=== PATIENT | male | born 1975 | race Caucasian/White ===

== ENCOUNTER 2024-07-17 17:12 | Inpatient (IN) | payer MEDICAID, OTHER, SELFPAY ==
[2024-07-17 17:45] VITALS: BP 122/88; PULSE 76; RESP 16; TEMP 36.9; O2SAT 98
--- NOTE | 2024-07-17 17:59 | PC.NURSE ---
Pt reports being allergic to a blood pressure med . T/w checked all crisis documentation and did not find the name of the med, only that the pt reported im allergic to a blood pressure med to crisis clinicians. CAW aware.
[2024-07-17] MEDS: Acetaminophen 325 MG TABLET 650 MG PO (18:44)
[2024-07-17] MEDS: hydrOXYzine HCL 25 MG TABLET PO (18:46)
[2024-07-17 19:44] VITALS: BP 153/61; PULSE 95; RESP 16; TEMP 36.4; O2SAT 98
[2024-07-17 20:29] VITALS: BMI 26.8
[2024-07-17] MEDS: traZODone HCL 50 MG TABLET PO (20:58)
--- NOTE | 2024-07-18 02:18 | PC.ADMIT ---
PT IS A 49 YEAR OLD, [place] MALE ADMITTED TO [facility] FROM [facility] ON A CONDITIONAL VOLUNTARY. A&OX4. PT IS PRIMARILY [place] SPEAKING BUT DOES SPEAK FLUENT KINYARWANDA. PT REPORTS FEELING INCREASED DEPRESSION AND ANXIETY DUE TO LIFE STRESSORS. PT FEELS OVERWHELMED BY FINANCES, WORK AND FAMILY LIFE. PT HAS 3 CHILDREN AND IS THE PRIMARY INCOME OF HIS HOUSEHOLD. PTS THOUGHT PROCESS IS LINEAR. INSIGHT IS GOOD. POOR COPING. PT REPORTS BEING A FORMER SMOKER BUT DOES NOT NEED NICOTINE REPLACEMENT. DENIES DRUG USE. PT REPORTS ALCOHOL USE A FEW TIMES PER MONTH. NO SIGNS OF ALCOHOL OR DRUG WITHDRAWAL. PT REPORTS THAT PRIOR TO GOING TO THE HOSPITAL HE TOOK SOME BLOOD PRESSURE MEDICATIONS WITH AN INTENTION TO NOT WAKE UP. PT WAS UNSURE WHAT THE NAME OF THE MEDICATION HE TOOK WAS. PT CURRENTLY DENIES ANY SUICIDAL IDEATION. PT REPORTS HAVING DIABETES (NO INSULIN USE), HYPERTENSION, AND GERD. PT REPORTS DIFFICULTY SLEEPING AND REQUESTED PRN MEDICATION FOR INSOMNIA. DENIES AH OR VH. PT APPEARS NEAT AND WELL KEMPT. NO CURRENT PSYCHIATRIC PROVIDERS OR MEDICATIONS.
[2024-07-18] MEDS: Omeprazole 20 MG CAPSULE.DR PO (06:42)
[2024-07-18 07:00] VITALS: BMI 27.0
[2024-07-18 08:00] VITALS: BP 118/71; PULSE 64; RESP 16; TEMP 36.8; O2SAT 97
[2024-07-18 08:39] LABS: Estimated Average Glucose 137 mg/dL; Hemoglobin A1C 215.4569 umol/L; Hemoglobin A1c % 6.4 % (<6.0); Total Hemoglobin (HGBA1C) 4598.2393 umol/L
[2024-07-18 08:59] LABS: Cholesterol 143 mg/dL (<200); HDL Cholesterol 38 mg/dL (>40); LDL Cholesterol Calculated 82 mg/dL (<100); Magnesium 1.9 mg/dL (1.6-2.6); Triglycerides 119 mg/dL (<150)
[2024-07-18 09:06] LABS: Free T4 (Free Thyroxine) 1.08 ng/dL (0.71-1.85); Thyroid Stimulating Hormone 1.96 uIU/mL (0.32-4.0)
--- NOTE | 2024-07-18 09:17 | HO.PSYADMNOT ---
HPI Date of Service: 08/14/24 Chief Complaint: generalized anxiety disorder,unspec depressive d/o Sources of Information: patient interviewed and chart reviewed HPI Subjective Notes: Conditional Voluntary Healthcare Proxy: No Guardianship: No Narrative: 49-year-old, [place] male he is a transfer from an ED from [place], [place] to [facility] ED yesterday for suicide ideation, anxiety and depression, in the setting of increased life stressors. Patient notes that he has been experiencing poor concentration, lack of interest/pleasure in his work and personal activities, poor sleep, hopelessness, helplessness, and anxiousness for the past 6 months. 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 He is with 3 children. He also supports his mother and other family members in [place]. His symptoms progressively worsened last week. Yesterday, he felt tired and was confused; he wanted to rest, therefore, he took 8 pain tablets (unknown name) in order to rest; he thought that he will be relieved if he were not alive. After he took the tablets, his advised him to go to the emergency room and seek help. He reports severe anxiety and depression. He reports history of feeling very depressed during the COVID pandemic for about a year and a half. He denies history of taking psychotropic medications. He denies nir or hypomania. He denies current SI. He denies HI/AH/VH. He denies alcohol illicit drug use. Patient seen at 11:30 on 07/18/2024. Past Psychiatric History: No psychiatrist hx, no history of psychotropic meds/psychiatrist/therapist No h/o SA or SIB No history of inpatient hospitalization Medical Evaluation Reviewed: Yes [facility] Family History: Mom h/o depression, maternal uncle h/o unknown mental illness with hospitalizations Social History: Employed Has 3 children Substance History: Drinks alcohol occasionally, denies illicit drug use, denies nicotine use Trauma History: None Diagnostics Vital Signs (24Hr): Vital Signs - 24 hr 07/17/24 17:45 07/17/24 19:44 07/18/24 08:00 Temperature 98.5 F 97.6 F 98.2 F Pulse Rate 76 95 64 Respiratory Rate 16 16 16 Blood Pressure 122/88 153/61 H 118/71 Pulse Oximetry 98 98 97 Oxygen Delivery Method Room Air Room Air Room Air BMI result Body Mass Index 26.8 Labs Labs: Laboratory Results - last 48 hr 07/18/24 08:20 Estimat Average Glucose 137 Hemoglobin A1c % 6.4 H Magnesium 1.9 Triglycerides 119 Cholesterol 143 LDL Cholesterol, Calc 82 HDL Cholesterol 38 L TSH 1.96 Free T4 1.08 Meds/Allergies Allergies Allergies Allergy/AdvReac Type Severity Reaction Status Date / Time No Known Allergies Allergy Verified 07/17/24 17:56 Mental Status Exam Mental Status Exam Narrative: Appearance: Casually dressed Behavior: Calm and cooperative throughout the interview. Eye contact is appropriate, and there are no signs of psychomotor agitation or retardation Speech: Normal volume and prosody Thought process logical and goal-directed Thought content: Future oriented no self-harming thoughts Mood: Depressed Affect: Blunt, mood-congruent SI:denies HI:denies VH/AH:none Delusions: None Insight/judgment: Impaired insight and judgment Memory/cog: Alert, oriented x 4. grossly intact to conversational testing Assessment & Plan Assessment & Plan (1) MDD (major depressive disorder): Status: Acute Code(s): F32.9 - Major depressive disorder, single episode, unspecified (2) REBECCA (generalized anxiety disorder): Status: Acute Code(s): F41.1 - Generalized anxiety disorder Plan 49-year-old, [place] male he is a transfer from an ED from [place], [place] to [facility] ED yesterday for suicide ideation, anxiety and depression, in the setting of increased life stressors. Patient notes that he has been experiencing poor concentration, lack of interest/pleasure in his work and personal activities, poor sleep, hopelessness, helplessness, and anxiousness for the past 6 months. 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 He is with 3 children. He also supports his mother and other family members in [place]. His symptoms progressively worsened last week. Yesterday, he felt tired and was confused; he wanted to rest, therefore, he took 8 pain tablets (unknown name) in order to rest; he thought that he will be relieved if he were not alive. After he took the tablets, his advised him to go to the emergency room and seek help. He reports severe anxiety and depression. He reports history of feeling very depressed during the COVID pandemic for about a year and a half. He denies history of taking psychotropic medications. He denies nir or hypomania. He denies current SI. He denies HI/AH/VH. He denies alcohol illicit drug use. Formulation/Clinical reasoning: MDD and REBECCA: Likely due to increased stressors such as work and financial demands and being the sole provider for his family. His symptoms progressively worsened over the past 6 months. He took some pain medication yesterday to go to sleep and never wake up, and thought that would relieve his symptoms. He denies current SI at this time. No nir or hypomania. No HI/AH/VH. No history of psychotropic medications. Will start sertraline 50 mg daily; advised to take as prescribed. Instructed on the risks, benefits, and potential adverse reactions of the medication. Continue current treatment regimen. Plan Admit to M[facility]. CV 15 minutes check. Diagnostics as needed. Collateral contact. Start sertraline 50 mg daily. Continue remainder of regime. Encouraged full milieu. Discharge planning. Patient educated on: diagnosis, medication risk/benefits and therapeutic strategies Reason for continued inpatient stay Substantial Risk for: harm to self and rapid decompensation Statement Statement: I have reviewed the history and physical and performed a pertinent examination on my patient. No changes have occurred unless specified. If the History and Physical was not performed prior to admission, the Hospitalist's service will be consulted for completing the admission physical. Time Spent With Patient Time: Total time managing care of this patient today ____ minutes.
[2024-07-18 09:18] LABS: Folate 10.5 ng/mL (> or = 4.0); Vitamin B12 503 pg/mL (200-900)
--- NOTE | 2024-07-18 10:31 | P.CONHOSP_ITS ---
History of Present Illness Data of Consult Service Date: 07/18/24 Primary Care Provider: Unknown Physician HPI Reason for consult: Medical H&P 49-year-old male with a past medical history of fatty liver disease, cho lelithiasis, GERD, hypertension and type 2 diabetes was admitted from [facility] after he ingested a large amount of unknown substance after he fell mental fatigue and lack of sleep. He is transferred here for further psychiatric treatment for depression. Per patient he takes amlodipine, omeprazole and Jardiance at home. He was unable to tolerate metformin. In the ED his QTC was 440, his EKG was normal, and his blood work was unremarkable. Today his A1c 6.4. Cholesterol within acceptable range. He denies any additional medical concerns. Review of Systems Review of Systems: Denies any shortness of breath, chest pain, dizziness, lightheadedness, abdominal pain or discomfort, nausea, vomiting or diarrhea. PMFSH Social History Household Members: Spouse and Children Housing: House Do you presently have visiting nurse or other home services: No Patient Tobacco Use Status: Former Tobacco user Smoked in Last 30 Days: No Patient Interested in Nicotine Replacement: No Patient Given Instructions on How to Stop Smoking: No Second Hand Smoke Exposure: No Currently Displaying Signs/Symptoms of Drug Intoxication Withdrawal: No Have you been hit, kicked, punched, or otherwise hurt by someone within the past year? If so, by whom?: No Do you feel safe in your current relationship?: Yes Is there a partner from a previous relationship who is making you feel unsafe now?: No Are you made to feel afraid or neglected: No Advance Directives: No Advance Directives Information Provided: Yes Do you have thoughts of harming others: None Do you have a plan to hurt others: No Plan Recently lost weight without trying: No Eating poorly because of decreased appetite: No Nutrition Risks: No Nutritional Risk Poor oral hygiene: No Meds Allergies Allergy/AdvReac Type Severity Reaction Status Date / Time No Known Allergies Allergy Verified 07/17/24 17:56 Active Medications: Current Medications Acetaminophen (Acetaminophen 325 Mg Tablet) 650 mg PO Q6H PRN PRN Reason: Headache/Pain, Scale 1-10 Last Admin: 07/17/24 18:44 Dose: 650 mg Al Hydroxide/Mg Hydroxide (Magnesium Hydrox/Alum Hydrox 30 Ml Oral.Susp) 30 ml PO Q6H PRN PRN Reason: Heartburn/Nausea Hydroxyzine HCl (Hydroxyzine Hcl 25 Mg Tablet) 25 mg PO Q6H PRN PRN Reason: mild anxiety Last Admin: 07/17/24 18:46 Dose: 25 mg Magnesium Hydroxide (Milk Of Magnesia 30 Ml Oral.Susp) 30 ml PO DAILY PRN PRN Reason: Constipation Nicotine Polacrilex (Nicotine Polacrilex 2 Mg Gum) 4 mg BUCCAL Q2H PRN PRN Reason: Nicotine Cravings Omeprazole (Omeprazole 20 Mg Capsule.Dr) 20 mg PO DAILY@0630 DASHA Last Admin: 07/18/24 06:42 Dose: 20 mg Trazodone HCl (Trazodone Hcl 50 Mg Tablet) 50 mg PO BEDTIME MRX1 PRN PRN Reason: Insomnia Last Admin: 07/17/24 20:58 Dose: 50 mg Physical Exam Vital Signs and Narrative: Vital Signs: Last Vital Signs Temp 98.2 F 07/18/24 08:00 Pulse 64 07/18/24 08:00 Resp 16 07/18/24 08:00 BP 118/71 07/18/24 08:00 Pulse Ox 97 07/18/24 08:00 O2 Del Method Room Air 07/18/24 08:00 BMI result Body Mass Index 26.8 Alert and oriented X3, able to give good history. Neuro: CN II-X11 intact, no deficits, visual acuity intact EYES: PERRLA, EOM intact ENT: Hearing intact, lips moist, nares patent no epistaxis Cardiac: S1 S2 RRR, No ectopy Pulmonary: lungs clear to auscultation, No increased WOB. Abdominal: BS active in all 4 quadrants, no guarding or tenderness MSK: Strength 5/5 upper and lower extremities : Deferred Extremities: No edema in lower extremities, PT and DP pulses palpable +2 Psych: mood stable, Quiet and cooperative. Weepy at times Skin: Warm and dry, Intact Results Labs Labs: Laboratory Results - last 24 hr 07/18/24 08:20 Estimat Average Glucose 137 Hemoglobin A1c % 6.4 H Magnesium 1.9 Triglycerides 119 Cholesterol 143 LDL Cholesterol, Calc 82 HDL Cholesterol 38 L Vitamin B12 503 Folate 10.5 TSH 1.96 Free T4 1.08 Assessment and Plan (1) Type 2 diabetes mellitus: Status: Acute Plan Depression with SI Treatment per psychiatric team Type 2 diabetes Patient reports he is only taking Jardiance, no longer takes metformin as he was unable tolerate it Recent A1c 6.4 Unable to perform med reconciliation as it has not been recorded Hypertension Continue amlodipine Blood pressure stable GERD Continue Omeprazole Thank you for allowing me to participate in the care of this patient. Signing off at this time. Please reconsult of any acute complaints or issues arise
[2024-07-18] MEDS: Sertraline HCL 50 MG TABLET PO (12:39)
[2024-07-18] MEDS: Acetaminophen 325 MG TABLET 650 MG PO (12:46)
[2024-07-18] MEDS: Lidocaine 4 % Patch ADH..PATCH 1 PATCH TRANSDERMA (16:23)
[2024-07-18] MEDS: hydrOXYzine HCL 25 MG TABLET PO ×2 (16:25→21:50)
[2024-07-18 20:00] VITALS: BP 116/73; PULSE 70; RESP 16; TEMP 37.2; O2SAT 95
[2024-07-18] MEDS: traZODone HCL 50 MG TABLET PO ×2 (20:55→21:50)
--- NOTE | 2024-07-18 21:33 | PHA.MEDREC ---
Pharmacy Consult ? Medication Reconciliation Pharmacy has reviewed the medication reconciliation completed by nursing. Called hospital in [place] to confirm medications.
[2024-07-19] MEDS: Omeprazole 20 MG CAPSULE.DR PO (06:30)
[2024-07-19 08:00] VITALS: BP 127/74; PULSE 93; RESP 16; TEMP 36.8; O2SAT 95
[2024-07-19] MEDS: Lidocaine 4 % Patch ADH..PATCH 1 PATCH TRANSDERMA (09:24)
[2024-07-19 09:25] VITALS: BP 127/74
[2024-07-19] MEDS: Cholecalciferol (Vitamin D3) 25 MCG TABLET 50 MCG PO (09:25)
[2024-07-19] MEDS: amLODIPine Besylate 5 MG TABLET PO (09:25)
[2024-07-19] MEDS: Sertraline HCL 50 MG TABLET PO (09:25)
[2024-07-19] MEDS: Empagliflozin 25 MG TABLET PO (09:25)
--- NOTE | 2024-07-19 11:47 | P.PNPSI_ITS ---
Subjective Subjective Date of Service: 07/19/24 Reason For Visit: generalized anxiety disorder,unspec depressive d/o Interim History: Reviewed precipitants to admission along with stressors. I want and need to be a good supporter of my family. Tolerating regime changes thus far. No milieu participation as yet. Encouraged to trial groups over the next few days. He agrees. Medication Compliance: Yes Side effects from medications: No Attending Groups: No Review of Systems Review of Systems Feeling tired today he reports Mental Status Exam Mental Status Exam Patient Appearance: Appropriate Patient Orientation: Person, Place, Time and Situation Level of Consciousness: Alert Patient Behavior: Talkative and Good Eye Contact Mood Description: Depressed Affect Description: Flat Patient Cognition Impaired: No Ability to Follow Directions: Good Speech Pattern: Spontaneous Speech Memory Description: Intact Hallucinations: None Delusions: Not Present Thought Process: Rumination and Goal Oriented Thought Content: positive for Perseveration Depressive Symptoms: Low Self Esteem Judgement: Fair Diagnostics Vital Signs (24Hr): Vital Signs - 24 hr 07/18/24 20:00 07/19/24 08:00 07/19/24 09:25 Temperature 98.9 F 98.2 F Pulse Rate 70 93 Respiratory Rate 16 16 Blood Pressure 116/73 127/74 127/74 Pulse Oximetry 95 95 Oxygen Delivery Method Room Air Room Air BMI result Body Mass Index 27.0 Labs Labs: Laboratory Results - last 48 hr 07/18/24 08:20 Estimat Average Glucose 137 Hemoglobin A1c % 6.4 H Magnesium 1.9 Triglycerides 119 Cholesterol 143 LDL Cholesterol, Calc 82 HDL Cholesterol 38 L Vitamin B12 503 Folate 10.5 TSH 1.96 Free T4 1.08 Medications Medications Current Medications Acetaminophen (Acetaminophen 325 Mg Tablet) 650 mg PO Q6H PRN PRN Reason: Headache/Pain, Scale 1-10 Last Admin: 07/18/24 12:46 Dose: 650 mg Al Hydroxide/Mg Hydroxide (Magnesium Hydrox/Alum Hydrox 30 Ml Oral.Susp) 30 ml PO Q6H PRN PRN Reason: Heartburn/Nausea Amlodipine Besylate (Amlodipine Besylate 5 Mg Tablet) 5 mg PO DAILY [facility] Last Admin: 07/19/24 09:25 Dose: 5 mg Empagliflozin (Empagliflozin 25 Mg Tablet) 25 mg PO DAILY DASHA Last Admin: 07/19/24 09:25 Dose: 25 mg Hydroxyzine HCl (Hydroxyzine Hcl 25 Mg Tablet) 25 mg PO Q6H PRN PRN Reason: mild anxiety Last Admin: 07/18/24 21:50 Dose: 25 mg Lidocaine (Lidocaine 4 % Patch Adh..Patch) 1 patch TRANSDERMA DAILY [facility]; Protocol Last Admin: 07/19/24 09:24 Dose: 1 patch Magnesium Hydroxide (Milk Of Magnesia 30 Ml Oral.Susp) 30 ml PO DAILY PRN PRN Reason: Constipation Nicotine Polacrilex (Nicotine Polacrilex 2 Mg Gum) 4 mg BUCCAL Q2H PRN PRN Reason: Nicotine Cravings Omeprazole (Omeprazole 20 Mg Capsule.Dr) 20 mg PO DAILY@0630 [facility] Last Admin: 07/19/24 06:30 Dose: 20 mg Sertraline HCl (Sertraline Hcl 50 Mg Tablet) 50 mg PO DAILY [facility] Last Admin: 07/19/24 09:25 Dose: 50 mg Trazodone HCl (Trazodone Hcl 50 Mg Tablet) 50 mg PO BEDTIME MRX1 PRN PRN Reason: Insomnia Last Admin: 07/18/24 21:50 Dose: 50 mg Vitamin D (Cholecalciferol (Vitamin D3) 25 Mcg Tablet) 50 mcg PO DAILY [facility] Last Admin: 07/19/24 09:25 Dose: 50 mcg Allergies Allergies Allergy/AdvReac Type Severity Reaction Status Date / Time No Known Allergies Allergy Verified 07/17/24 17:56 Assessment & Plan Assessment & Plan (1) MDD (major depressive disorder): Status: Acute Code(s): F32.9 - Major depressive disorder, single episode, unspecified (2) REBECCA (generalized anxiety disorder): Status: Acute Code(s): F41.1 - Generalized anxiety disorder Plan 49-year-old, Iranian male he is a transfer from an ED from [place], [place] to [facility] yesterday for suicide ideation, anxiety and depression, in the setting of increased life stressors. Patient notes that he has been experiencing poor concentration, lack of interest/pleasure in his work and personal activities, poor sleep, hopelessness, helplessness, and anxiousness for the past 6 months. 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 He is with 3 children. He also supports his mother and other family members in [place]. His symptoms progressively worsened last week. Yesterday, he felt tired and was confused; he wanted to rest, therefore, he took 8 pain tablets (unknown name) in order to rest; he thought that he will be relieved if he were not alive. After he took the tablets, his advised him to go to the emergency room and seek help. He reports severe anxiety and depression. He reports history of feeling very depressed during the COVID pandemic for about a year and a half. He denies history of taking psychotropic medications. He denies inr or hypomania. He denies current SI. He denies HI/AH/VH. He denies alcohol illicit drug use. Formulation/Clinical reasoning: MDD and REBECCA: Likely due to increased stressors such as work and financial demands and being the sole provider for his family. His symptoms progressively worsened over the past 6 months. He took some pain medication yesterday to go to sleep and never wake up, and thought that would relieve his symptoms. He denies current SI at this time. No nir or hypomania. No HI/AH/VH. No history of psychotropic medications. Will start sertraline 50 mg daily; advised to take as prescribed. Instructed on the risks, benefits, and potential adverse reactions of the medication. Continue current treatment regimen. Plan Admit to M[facility]. CV 15 minutes check. Diagnostics as needed. Collateral contact. Start sertraline 50 mg daily. Continue remainder of regime. Encouraged full milieu. Discharge planning. 07/19: Continue tx Reason for continued inpatient stay Substantial Risk for: rapid decompensation Time Spent With Patient Time: Total time managing care of this patient today ____ minutes.
[2024-07-19 19:55] VITALS: BP 122/69; PULSE 78; RESP 16; TEMP 37.2; O2SAT 98
[2024-07-19] MEDS: traZODone HCL 50 MG TABLET PO (20:07)
[2024-07-20] MEDS: Omeprazole 20 MG CAPSULE.DR PO (06:32)
[2024-07-20 08:00] VITALS: BP 118/74; PULSE 71; RESP 18; TEMP 36.4; O2SAT 96
[2024-07-20] MEDS: Cholecalciferol (Vitamin D3) 25 MCG TABLET 50 MCG PO (08:38)
[2024-07-20] MEDS: Sertraline HCL 50 MG TABLET PO (08:38)
[2024-07-20] MEDS: Empagliflozin 25 MG TABLET PO (08:39)
[2024-07-20] MEDS: amLODIPine Besylate 5 MG TABLET PO (08:39)
[2024-07-20] MEDS: Lidocaine 4 % Patch ADH..PATCH 1 PATCH TRANSDERMA (08:40)
--- NOTE | 2024-07-20 11:57 | P.PNPSI_ITS ---
Subjective Subjective Date of Service: 07/20/24 Reason For Visit: generalized anxiety disorder,unspec depressive d/o Interim History: Patient states he is generally feeling better no concerns regarding medication he continues on 15 minute checks feels medication useful Medication Compliance: Yes Mental Status Exam Mental Status Exam Patient Appearance: Appropriate Patient Orientation: Person, Place, Time and Situation Level of Consciousness: Alert Patient Behavior: Talkative and Good Eye Contact Mood Description: Depressed Affect Description: Flat Patient Cognition Impaired: No Ability to Follow Directions: Good Speech Pattern: Spontaneous Speech Memory Description: Intact Hallucinations: None Delusions: Not Present Thought Process: Rumination and Goal Oriented Thought Content: positive for Perseveration Depressive Symptoms: Low Self Esteem Judgement: Fair Diagnostics Vital Signs (24Hr): Vital Signs - 24 hr 07/19/24 19:55 07/20/24 08:00 Temperature 99.0 F 97.6 F Pulse Rate 78 71 Respiratory Rate 16 18 Blood Pressure 122/69 118/74 Pulse Oximetry 98 96 Oxygen Delivery Method Room Air Room Air BMI result Body Mass Index 27.0 Medications Medications Current Medications Acetaminophen (Acetaminophen 325 Mg Tablet) 650 mg PO Q6H PRN PRN Reason: Headache/Pain, Scale 1-10 Last Admin: 07/18/24 12:46 Dose: 650 mg Al Hydroxide/Mg Hydroxide (Magnesium Hydrox/Alum Hydrox 30 Ml Oral.Susp) 30 ml PO Q6H PRN PRN Reason: Heartburn/Nausea Amlodipine Besylate (Amlodipine Besylate 5 Mg Tablet) 5 mg PO DAILY [facility] Last Admin: 07/20/24 08:39 Dose: 5 mg Empagliflozin (Empagliflozin 25 Mg Tablet) 25 mg PO DAILY [facility] Last Admin: 07/20/24 08:39 Dose: 25 mg Hydroxyzine HCl (Hydroxyzine Hcl 25 Mg Tablet) 25 mg PO Q6H PRN PRN Reason: mild anxiety Last Admin: 07/18/24 21:50 Dose: 25 mg Lidocaine (Lidocaine 4 % Patch Adh..Patch) 1 patch TRANSDERMA DAILY [facility]; Protocol Last Admin: 07/20/24 08:40 Dose: 1 patch Magnesium Hydroxide (Milk Of Magnesia 30 Ml Oral.Susp) 30 ml PO DAILY PRN PRN Reason: Constipation Nicotine Polacrilex (Nicotine Polacrilex 2 Mg Gum) 4 mg BUCCAL Q2H PRN PRN Reason: Nicotine Cravings Omeprazole (Omeprazole 20 Mg Capsule.Dr) 20 mg PO DAILY@629 [facility] Last Admin: 07/20/24 06:32 Dose: 20 mg Sertraline HCl (Sertraline Hcl 50 Mg Tablet) 50 mg PO DAILY [facility] Last Admin: 07/20/24 08:38 Dose: 50 mg Trazodone HCl (Trazodone Hcl 50 Mg Tablet) 50 mg PO BEDTIME MRX1 PRN PRN Reason: Insomnia Last Admin: 07/19/24 20:07 Dose: 50 mg Vitamin D (Cholecalciferol (Vitamin D3) 25 Mcg Tablet) 50 mcg PO DAILY [facility] Last Admin: 07/20/24 08:38 Dose: 50 mcg Allergies Allergies Allergy/AdvReac Type Severity Reaction Status Date / Time No Known Allergies Allergy Verified 07/17/24 17:56 Assessment & Plan Assessment & Plan (1) MDD (major depressive disorder): Status: Acute Code(s): F32.9 - Major depressive disorder, single episode, unspecified (2) REBECCA (generalized anxiety disorder): Status: Acute Code(s): F41.1 - Generalized anxiety disorder Plan 49-year-old, [place] male he is a transfer from an ED from [place], [place] to [facility] [place] ED yesterday for suicide ideation, anxiety and depression, in the setting of increased life stressors. Patient notes that he has been experiencing poor concentration, lack of interest/pleasure in his work and personal activities, poor sleep, hopelessness, helplessness, and anxiousness for the past 6 months. 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 He is with 3 children. He also supports his mother and other family members in [place]. His symptoms progressively worsened last week. Yesterday, he felt tired and was confused; he wanted to rest, therefore, he took 8 pain tablets (unknown name) in order to rest; he thought that he will be relieved if he were not alive. After he took the tablets, his advised him to go to the emergency room and seek help. He reports severe anxiety and depression. He reports history of feeling very depressed during the COVID pandemic for about a year and a half. He denies history of taking psychotropic medications. He denies nir or hypomania. He denies current SI. He denies HI/AH/VH. He denies alcohol illicit drug use. Formulation/Clinical reasoning: MDD and REBECCA: Likely due to increased stressors such as work and financial demands and being the sole provider for his family. His symptoms progressively worsened over the past 6 months. He took some pain medication yesterday to go to sleep and never wake up, and thought that would relieve his symptoms. He denies current SI at this time. No nir or hypomania. No HI/AH/VH. No history of psychotropic medications. Will start sertraline 50 mg daily; advised to take as prescribed. Instructed on the risks, benefits, and potential adverse reactions of the medication. Continue current treatment regimen. Plan Admit to M5. CV 15 minutes check. Diagnostics as needed. Collateral contact. Start sertraline 50 mg daily. Continue remainder of regime. Encouraged full milieu. Discharge planning. 07/19: Continue tx 07/20/2024 Continue plan of care patient feeling better on current regimen no complaints of side effects Reason for continued inpatient stay Substantial Risk for: inability to function and rapid decompensation Time Spent With Patient Time: Total time managing care of this patient today ____ minutes.
[2024-07-20 20:00] VITALS: BP 129/80; PULSE 69; TEMP 36.8; O2SAT 96
[2024-07-20] MEDS: traZODone HCL 50 MG TABLET PO (20:12)
[2024-07-20] MEDS: Acetaminophen 325 MG TABLET 650 MG PO (20:16)
[2024-07-21] MEDS: Omeprazole 20 MG CAPSULE.DR PO (07:32)
[2024-07-21 08:00] VITALS: BP 117/63; PULSE 62; RESP 18; TEMP 36.5; O2SAT 96
[2024-07-21] MEDS: Cholecalciferol (Vitamin D3) 25 MCG TABLET 50 MCG PO (08:51)
[2024-07-21] MEDS: Sertraline HCL 50 MG TABLET PO (08:51)
[2024-07-21] MEDS: amLODIPine Besylate 5 MG TABLET PO (08:51)
[2024-07-21] MEDS: hydrOXYzine HCL 25 MG TABLET PO (08:53)
[2024-07-21] MEDS: Empagliflozin 25 MG TABLET PO (08:53)
[2024-07-21 20:00] VITALS: BP 121/83; PULSE 73; RESP 16; TEMP 37; O2SAT 97
[2024-07-21] MEDS: traZODone HCL 50 MG TABLET PO (21:35)
[2024-07-21] MEDS: Acetaminophen 325 MG TABLET 650 MG PO (21:35)
--- NOTE | 2024-07-21 23:21 | P.PNPSI_ITS ---
Subjective Subjective Date of Service: 07/21/24 Reason For Visit: generalized anxiety disorder,unspec depressive d/o Subjective Notes: Conditional Voluntary Interim History: Patient here for depression and anxiety. Was found resting in his bed. Says he is feeling a little better Feeling okay, mood is good Attributes admission to having a lot of stress from work and life Mood was stressed and says he had some vague SI prior to admission, but denies any since. 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 Works in [employer]. Says his son is caring for it currently. Lives at home with and 2 adult children (in their 20s) and 7. Endorsed having had some LBP but has been much better . DEnies any other issues Denies SI, HI, AVH. Per staff, isolative, sometimes in the kitchen, not attending groups. No behavioral issues. Patient not scoring on CIWA. Review of Systems Review of Systems Feeling tired today he reports Yes all other systems are reviewed and are negative Mental Status Exam Mental Status Exam Narrative: Appearance: Casually dressed Behavior: Calm and cooperative throughout the interview. Eye contact is appropriate, and there are no signs of psychomotor agitation or retardation Speech: Normal volume and prosody Thought process logical and goal-directed Thought content: Future oriented no self-harming thoughts Mood: Depressed Affect: Blunt, mood-congruent SI:denies HI:denies VH/AH:none Delusions: None Insight/judgment: Impaired insight and judgment Memory/cog: Alert, oriented x 4. grossly intact to conversational testing Patient Appearance: Appropriate Patient Orientation: Person, Place, Time and Situation Level of Consciousness: Alert Patient Behavior: Talkative and Good Eye Contact Mood Description: Depressed Affect Description: Flat Patient Cognition Impaired: No Ability to Follow Directions: Good Speech Pattern: Spontaneous Speech Memory Description: Intact Diagnostics Vital Signs (24Hr): Vital Signs - 24 hr 07/21/24 08:00 07/21/24 20:00 Temperature 97.7 F 98.6 F Pulse Rate 62 73 Respiratory Rate 18 16 Blood Pressure 117/63 121/83 Pulse Oximetry 96 97 Oxygen Delivery Method Room Air Room Air BMI result Body Mass Index 27.0 Medications Medications Current Medications Acetaminophen (Acetaminophen 325 Mg Tablet) 650 mg PO Q6H PRN PRN Reason: Headache/Pain, Scale 1-10 Last Admin: 07/20/24 20:16 Dose: 650 mg Al Hydroxide/Mg Hydroxide (Magnesium Hydrox/Alum Hydrox 30 Ml Oral.Susp) 30 ml PO Q6H PRN PRN Reason: Heartburn/Nausea Amlodipine Besylate (Amlodipine Besylate 5 Mg Tablet) 5 mg PO DAILY [facility] Last Admin: 07/21/24 08:51 Dose: 5 mg Empagliflozin (Empagliflozin 25 Mg Tablet) 25 mg PO DAILY [facility] Last Admin: 07/21/24 08:53 Dose: 25 mg Hydroxyzine HCl (Hydroxyzine Hcl 25 Mg Tablet) 25 mg PO Q6H PRN PRN Reason: mild anxiety Last Admin: 07/21/24 08:53 Dose: 25 mg Lidocaine (Lidocaine 4 % Patch Adh..Patch) 1 patch TRANSDERMA DAILY [facility]; Protocol Last Admin: 07/21/24 08:51 Dose: Not Given Magnesium Hydroxide (Milk Of Magnesia 30 Ml Oral.Susp) 30 ml PO DAILY PRN PRN Reason: Constipation Nicotine Polacrilex (Nicotine Polacrilex 2 Mg Gum) 4 mg BUCCAL Q2H PRN PRN Reason: Nicotine Cravings Omeprazole (Omeprazole 20 Mg Capsule.Dr) 20 mg PO DAILY@0630 [facility] Last Admin: 07/21/24 07:32 Dose: 20 mg Sertraline HCl (Sertraline Hcl 50 Mg Tablet) 50 mg PO DAILY [facility] Last Admin: 07/21/24 08:51 Dose: 50 mg Trazodone HCl (Trazodone Hcl 50 Mg Tablet) 50 mg PO BEDTIME MRX1 PRN PRN Reason: Insomnia Last Admin: 07/20/24 20:12 Dose: 50 mg Vitamin D (Cholecalciferol (Vitamin D3) 25 Mcg Tablet) 50 mcg PO DAILY [facility] Last Admin: 07/21/24 08:51 Dose: 50 mcg Allergies Allergies Allergy/AdvReac Type Severity Reaction Status Date / Time No Known Allergies Allergy Verified 07/17/24 17:56 Assessment & Plan Assessment & Plan (1) MDD (major depressive disorder): Status: Acute Code(s): F32.9 - Major depressive disorder, single episode, unspecified (2) REBECCA (generalized anxiety disorder): Status: Acute Code(s): F41.1 - Generalized anxiety disorder Plan 49-year-old, [place] male he is a transfer from an ED from [place], [place] to [facility] yesterday for suicide ideation, anxiety and depression, in the setting of increased life stressors. Patient notes that he has been experiencing poor concentration, lack of interest/pleasure in his work and personal activities, poor sleep, hopelessness, helplessness, and anxiousness for the past 6 months. 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 He is with 3 children. He also supports his mother and other family members in [place]. His symptoms progressively worsened last week. Yesterday, he felt tired and was confused; he wanted to rest, therefore, he took 8 pain tablets (unknown name) in order to rest; he thought that he will be relieved if he were not alive. After he took the tablets, his advised him to go to the emergency room and seek help. He reports severe anxiety and depression. He reports history of feeling very depressed during the COVID pandemic for about a year and a half. He denies history of taking psychotropic medications. He denies nir or hypomania. He denies current SI. He denies HI/AH/VH. He denies alcohol illicit drug use. Formulation/Clinical reasoning: MDD and REBECCA: Likely due to increased stressors such as work and financial demands and being the sole provider for his family. His symptoms progressively worsened over the past 6 months. He took some pain medication yesterday to go to sleep and never wake up, and thought that would relieve his symptoms. He denies current SI at this time. No nir or hypomania. No HI/AH/VH. No history of psychotropic medications. Will start sertraline 50 mg daily; advised to take as prescribed. Instructed on the risks, benefits, and potential adverse reactions of the medication. Continue current treatment regimen. Plan Admit to M5. CV 15 minutes check. Diagnostics as needed. Collateral contact. Start sertraline 50 mg daily. Continue remainder of regime. Encouraged full milieu. Discharge planning. 07/19: Continue tx 07/20/2024 Continue plan of care patient feeling better on current regimen no complaints of side effects Patient educated on: diagnosis and medication risk/benefits Informed Consent: understands Reason for continued inpatient stay Substantial Risk for: inability to function, rapid decompensation and med/psych decompensation Time Spent With Patient Time: Total time managing care of this patient today ____ minutes.
[2024-07-22] MEDS: Omeprazole 20 MG CAPSULE.DR PO (07:22)
[2024-07-22 07:47] VITALS: BP 118/72; PULSE 62; RESP 18; TEMP 36.5; O2SAT 96
[2024-07-22] MEDS: Cholecalciferol (Vitamin D3) 25 MCG TABLET 50 MCG PO (08:20)
[2024-07-22] MEDS: amLODIPine Besylate 5 MG TABLET PO (08:20)
[2024-07-22] MEDS: Empagliflozin 25 MG TABLET PO (08:21)
[2024-07-22] MEDS: Sertraline HCL 50 MG TABLET PO (08:21)
--- NOTE | 2024-07-22 09:52 | P.PNPSI_ITS ---
Subjective Subjective Date of Service: 07/22/24 Reason For Visit: generalized anxiety disorder,unspec depressive d/o Subjective Notes: Conditional Voluntary Healthcare Proxy: No Guardianship: No Medical Problems Affecting Mental Status: No Interim History: Pt reports the weekend was slow but steady. He was able to attend some milieu groups and found these useful. He reports increased interactions with peers on the unit and is engaging in more milieu related activity. Today he discussed his depressive sx. Reports anergia, less enjoyment in work and activities, was found to have low testosterone and is working with PCP team on this-states he was told it was not low enough for replacement and discussed effects on mood of DM. Reports meds are working-trazodone helping with sleep. Discussed Sertraline titration which he is in agreement with. Medication Compliance: Yes Side effects from medications: No Attending Groups: Yes Review of Systems Acute medical concerns: No Review of Systems Review of Systems Denies Mental Status Exam Mental Status Exam Patient Appearance: Appropriate Patient Orientation: Person, Place, Time and Situation Level of Consciousness: Alert Patient Behavior: Appropriate, Talkative, Cooperative and Good Eye Contact Mood Description: Depressed Affect Description: Flat Patient Cognition Impaired: No Ability to Follow Directions: Good Speech Pattern: Spontaneous Speech Memory Description: Intact Hallucinations: None Delusions: Not Present Thought Process: Intact Thought Content: positive for Intact and positive for Suicidal Ideation (denies) Depressive Symptoms: Thoughts of /Suicide (denies) Judgement: Good Diagnostics Vital Signs (24Hr): Vital Signs - 24 hr 07/21/24 20:00 07/22/24 07:47 Temperature 98.6 F 97.7 F Pulse Rate 73 62 Respiratory Rate 16 18 Blood Pressure 121/83 118/72 Pulse Oximetry 97 96 Oxygen Delivery Method Room Air Room Air BMI result Body Mass Index 27.0 Medications Medications Current Medications Acetaminophen (Acetaminophen 325 Mg Tablet) 650 mg PO Q6H PRN PRN Reason: Headache/Pain, Scale 1-10 Last Admin: 07/21/24 21:35 Dose: 650 mg Al Hydroxide/Mg Hydroxide (Magnesium Hydrox/Alum Hydrox 30 Ml Oral.Susp) 30 ml PO Q6H PRN PRN Reason: Heartburn/Nausea Amlodipine Besylate (Amlodipine Besylate 5 Mg Tablet) 5 mg PO DAILY [facility] Last Admin: 07/22/24 08:20 Dose: 5 mg Empagliflozin (Empagliflozin 25 Mg Tablet) 25 mg PO DAILY [facility] Last Admin: 07/22/24 08:21 Dose: 25 mg Hydroxyzine HCl (Hydroxyzine Hcl 25 Mg Tablet) 25 mg PO Q6H PRN PRN Reason: mild anxiety Last Admin: 07/21/24 08:53 Dose: 25 mg Lidocaine (Lidocaine 4 % Patch Adh..Patch) 1 patch TRANSDERMA DAILY [facility]; Protocol Last Admin: 07/22/24 08:22 Dose: Not Given Magnesium Hydroxide (Milk Of Magnesia 30 Ml Oral.Susp) 30 ml PO DAILY PRN PRN Reason: Constipation Nicotine Polacrilex (Nicotine Polacrilex 2 Mg Gum) 4 mg BUCCAL Q2H PRN PRN Reason: Nicotine Cravings Omeprazole (Omeprazole 20 Mg Capsule.Dr) 20 mg PO DAILY@0630 [facility] Last Admin: 07/22/24 07:22 Dose: 20 mg Sertraline HCl (Sertraline Hcl 50 Mg Tablet) 50 mg PO DAILY [facility] Last Admin: 07/22/24 08:21 Dose: 50 mg Trazodone HCl (Trazodone Hcl 50 Mg Tablet) 50 mg PO BEDTIME MRX1 PRN PRN Reason: Insomnia Last Admin: 07/21/24 21:35 Dose: 50 mg Vitamin D (Cholecalciferol (Vitamin D3) 25 Mcg Tablet) 50 mcg PO DAILY [facility] Last Admin: 07/22/24 08:20 Dose: 50 mcg Allergies Allergies Allergy/AdvReac Type Severity Reaction Status Date / Time No Known Allergies Allergy Verified 07/17/24 17:56 Assessment & Plan Assessment & Plan (1) MDD (major depressive disorder): Status: Acute Code(s): F32.9 - Major depressive disorder, single episode, unspecified (2) REBECCA (generalized anxiety disorder): Status: Acute Code(s): F41.1 - Generalized anxiety disorder Plan 49-year-old, [place] male he is a transfer from an ED [place], [place] [facility] [place] for suicide ideation, anxiety and depression, in the setting of increased life stressors. Patient notes that he has been experiencing poor concentration, lack of interest/pleasure in his work and personal activities, poor sleep, hopelessness, helplessness, and anxiousness for the past 6 months. 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 He is with 3 children. He also supports his mother and other family members in [place]. His symptoms progressively worsened last week. Yesterday, he felt tired and was confused; he wanted to rest, therefore, he took 8 pain tablets (unknown name) in order to rest; he thought that he will be relieved if he were not alive. After he took the tablets, his advised him to go to the emergency room and seek help. He reports severe anxiety and depression. He reports history of feeling very depressed during the COVID pandemic for about a year and a half. He denies history of taking psychotropic medications. He denies nir or hypomania. He d enies current SI. He denies HI/AH/VH. He denies alcohol illicit drug use. Formulation/Clinical reasoning: MDD and REBECCA: Likely due to increased stressors such as work and financial demands and being the sole provider for his family. His symptoms progressively worsened over the past 6 months. He took some pain medication yesterday to go to sleep and never wake up, and thought that would relieve his symptoms. He denies current SI at this time. No nir or hypomania. No HI/AH/VH. No history of psychotropic medications. Will start sertraline 50 mg daily; advised to take as prescribed. Instructed on the risks, benefits, and potential adverse reactions of the medication. Continue current treatment regimen. Plan Admit to M5. CV 15 minutes check. Diagnostics as needed. Collateral contact. Start sertraline 50 mg daily. Continue remainder of regime. Encouraged full milieu. Discharge planning. 07/19: Continue tx 07/20/2024 Continue plan of care patient feeling better on current regimen no complaints of side effects 07/22- Increase Sertraline to 100 mg daily Reason for continued inpatient stay Substantial Risk for: rapid decompensation Time Spent With Patient Time: Total time managing care of this patient today ____ minutes.
[2024-07-22 20:00] VITALS: BP 124/64; PULSE 70; RESP 16; TEMP 37; O2SAT 97
[2024-07-22] MEDS: Acetaminophen 325 MG TABLET 650 MG PO (21:33)
[2024-07-22] MEDS: traZODone HCL 50 MG TABLET PO (21:33)
[2024-07-23 08:00] VITALS: BP 116/64; PULSE 67; RESP 18; TEMP 36.6; O2SAT 97
[2024-07-23 08:29] VITALS: BP 116/64
[2024-07-23] MEDS: amLODIPine Besylate 5 MG TABLET PO (08:29)
[2024-07-23] MEDS: Omeprazole 20 MG CAPSULE.DR PO (08:29)
[2024-07-23] MEDS: Sertraline HCL 100 MG TABLET PO (08:29)
[2024-07-23] MEDS: Cholecalciferol (Vitamin D3) 25 MCG TABLET 50 MCG PO (08:30)
[2024-07-23] MEDS: Empagliflozin 25 MG TABLET PO (08:30)
--- NOTE | 2024-07-23 09:57 | P.PNPSI_ITS ---
Subjective Subjective Date of Service: 07/23/24 Reason For Visit: generalized anxiety disorder,unspec depressive d/o Subjective Notes: Conditional Voluntary Healthcare Proxy: No Guardianship: No Medical Problems Affecting Mental Status: No Interim History: Tolerating Sertraline increase. Reports some mild dizziness this a.m. Will monitor. Planning discharge for 07/25 to home/family. Continues to participate in milieu and engage with peers and team. Medication Compliance: Yes Side effects from medications: No Attending Groups: Yes Review of Systems Acute medical concerns: No Medical Review of Systems: unchanged Review of Systems Review of Systems Denies Mental Status Exam Mental Status Exam Patient Appearance: Appropriate Patient Orientation: Person, Place, Time and Situation Level of Consciousness: Alert Patient Behavior: Appropriate, Talkative, Cooperative and Good Eye Contact Mood Description: Depressed Affect Description: Flat Patient Cognition Impaired: No Ability to Follow Directions: Good Speech Pattern: Spontaneous Speech Memory Description: Intact Hallucinations: None Delusions: Not Present Thought Process: Intact Thought Content: positive for Intact and positive for Suicidal Ideation (denies) Depressive Symptoms: Thoughts of /Suicide (denies) Judgement: Good Diagnostics Vital Signs (24Hr): Vital Signs - 24 hr 07/22/24 20:00 07/23/24 08:00 07/23/24 08:29 Temperature 98.6 F 97.8 F Pulse Rate 70 67 Respiratory Rate 16 18 Blood Pressure 124/64 116/64 116/64 Pulse Oximetry 97 97 Oxygen Delivery Method Room Air Room Air BMI result Body Mass Index 27.0 Medications Medications Current Medications Acetaminophen (Acetaminophen 325 Mg Tablet) 650 mg PO Q6H PRN PRN Reason: Headache/Pain, Scale 1-10 Last Admin: 07/22/24 21:33 Dose: 650 mg Al Hydroxide/Mg Hydroxide (Magnesium Hydrox/Alum Hydrox 30 Ml Oral.Susp) 30 ml PO Q6H PRN PRN Reason: Heartburn/Nausea Amlodipine Besylate (Amlodipine Besylate 5 Mg Tablet) 5 mg PO DAILY [facility] Last Admin: 07/23/24 08:29 Dose: 5 mg Empagliflozin (Empagliflozin 25 Mg Tablet) 25 mg PO DAILY DASHA Last Admin: 07/23/24 08:30 Dose: 25 mg Hydroxyzine HCl (Hydroxyzine Hcl 25 Mg Tablet) 25 mg PO Q6H PRN PRN Reason: mild anxiety Last Admin: 07/21/24 08:53 Dose: 25 mg Lidocaine (Lidocaine 4 % Patch Adh..Patch) 1 patch TRANSDERMA DAILY [facility]; Protocol Last Admin: 07/23/24 08:31 Dose: Not Given Magnesium Hydroxide (Milk Of Magnesia 30 Ml Oral.Susp) 30 ml PO DAILY PRN PRN Reason: Constipation Nicotine Polacrilex (Nicotine Polacrilex 2 Mg Gum) 4 mg BUCCAL Q2H PRN PRN Reason: Nicotine Cravings Omeprazole (Omeprazole 20 Mg Capsule.Dr) 20 mg PO DAILY@0630 [facility] Last Admin: 07/23/24 08:29 Dose: 20 mg Sertraline HCl (Sertraline Hcl 100 Mg Tablet) 100 mg PO DAILY [facility] Last Admin: 07/23/24 08:29 Dose: 100 mg Trazodone HCl (Trazodone Hcl 50 Mg Tablet) 50 mg PO BEDTIME MRX1 PRN PRN Reason: Insomnia Last Admin: 07/22/24 21:33 Dose: 50 mg Vitamin D (Cholecalciferol (Vitamin D3) 25 Mcg Tablet) 50 mcg PO DAILY [facility] Last Admin: 07/23/24 08:30 Dose: 50 mcg Allergies Allergies Allergy/AdvReac Type Severity Reaction Status Date / Time No Known Allergies Allergy Verified 07/17/24 17:56 Assessment & Plan Assessment & Plan (1) MDD (major depressive disorder): Status: Acute Code(s): F32.9 - Major depressive disorder, single episode, unspecified (2) REBECCA (generalized anxiety disorder): Status: Acute Code(s): F41.1 - Generalized anxiety disorder Plan 49-year-old, [place] male he is a transfer from an ED from [place], [place] to [facility] ED yesterday for suicide ideation, anxiety and depression, in the setting of increased life stressors. Patient notes that he has been experiencing poor concentration, lack of interest/pleasure in his work and personal activities, poor sleep, hopelessness, helplessness, and anxiousness for the past 6 months. 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 He is with 3 children. He also supports his mother and other family members in [place]. His symptoms progressively worsened last week. Yesterday, he felt tired and was confused; he wanted to rest, therefore, he took 8 pain tablets (unknown name) in order to rest; he thought that he will be relieved if he were not alive. After he took the tablets, his advised him to go to the emergency room and seek help. He reports severe anxiety and depression. He reports history of feeling very depressed during the COVID pandemic for about a year and a half. He denies history of taking psychotropic medications. He denies nir or hypomania. He denies current SI. He denies HI/AH/VH. He denies alcohol illicit drug use. Formulation/Clinical reasoning: MDD and REBECCA: Likely due to increased stressors such as work and financial demands and being the sole provider for his family. His symptoms progressively worsened over the past 6 months. He took some pain medication yesterday to go to sleep and never wake up, and thought that would relieve his symptoms. He denies current SI at this time. No nir or hypomania. No HI/AH/VH. No history of psychotropic medications. Will start sertraline 50 mg daily; advised to take as prescribed. Instructed on the risks, benefits, and potential adverse reactions of the medication. Continue current treatment regimen. Plan Admit to M5. CV 15 minutes check. Diagnostics as needed. Collateral contact. Start sertraline 50 mg daily. Continue remainder of regime. Encouraged full milieu. Discharge planning. 07/19: Continue tx 07/20/2024 Continue plan of care patient feeling better on current regimen no complaints of side effects 07/23: Continue Sertraline at 100 mg daily. Probable DC on 07/25. Reason for continued inpatient stay Substantial Risk for: rapid decompensation Time Spent With Patient Time: Total time managing care of this patient today ____ minutes.
[2024-07-23 19:57] VITALS: BP 124/81; PULSE 67; RESP 18; TEMP 37.1; O2SAT 97
[2024-07-23] MEDS: traZODone HCL 50 MG TABLET PO (21:21)
[2024-07-23] MEDS: Acetaminophen 325 MG TABLET 650 MG PO (21:24)
[2024-07-24] MEDS: Omeprazole 20 MG CAPSULE.DR PO (06:11)
[2024-07-24 07:59] VITALS: BP 115/65; PULSE 63; RESP 16; TEMP 36.6; O2SAT 97
[2024-07-24] MEDS: Cholecalciferol (Vitamin D3) 25 MCG TABLET 50 MCG PO (08:20)
[2024-07-24] MEDS: Empagliflozin 25 MG TABLET PO (08:20)
[2024-07-24] MEDS: amLODIPine Besylate 5 MG TABLET PO (08:20)
[2024-07-24] MEDS: Acetaminophen 325 MG TABLET 650 MG PO ×2 (08:21→21:40)
[2024-07-24] MEDS: Sertraline HCL 100 MG TABLET PO (08:21)
--- NOTE | 2024-07-24 09:48 | P.PNPSI_ITS ---
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 asked treatment questions, medication questions and asks how family can be most supportive. Reviewed conversation with pt, review of meds, plan of care. Discussed decreasing Sertraline to 75 mg daily from 100 mg daily due to vertigo that is decreasing yet continues to be present. Pt in agreement, feels prepared to discharge on 07/25. Denies SI,HI,AH,VH. No sx of acute nir or psychosis evident. Medication Compliance: Yes Side effects from medications: Yes (decreasing vertigo, dizziness) Attending Groups: Yes Review of Systems Acute medical concerns: No Review of Systems Review of Systems dizziness is decreasing, yet still present. Will decrease Sertraline to 75 mg daily. Mental Status Exam Mental Status Exam Patient Appearance: Appropriate Patient Orientation: Person, Place, Time and Situation Level of Consciousness: Alert Patient Behavior: Appropriate, Talkative, Cooperative and Good Eye Contact Mood Description: Appropriate Affect Description: Flat Patient Cognition Impaired: No Ability to Follow Directions: Good Speech Pattern: Spontaneous Speech Memory Description: Intact Hallucinations: None Delusions: Not Present Thought Process: Intact Thought Content: positive for Intact and positive for Suicidal Ideation (denies) Depressive Symptoms: Thoughts of /Suicide (denies) Judgement: Good Diagnostics Vital Signs (24Hr): Vital Signs - 24 hr 07/23/24 19:57 07/24/24 07:59 Temperature 98.8 F 97.8 F Pulse Rate 67 63 Respiratory Rate 18 16 Blood Pressure 124/81 115/65 Pulse Oximetry 97 97 Oxygen Delivery Method Room Air Room Air BMI result Body Mass Index 27.0 Medications Medications Current Medications Acetaminophen (Acetaminophen 325 Mg Tablet) 650 mg PO Q6H PRN PRN Reason: Headache/Pain, Scale 1-10 Last Admin: 07/24/24 08:21 Dose: 650 mg Al Hydroxide/Mg Hydroxide (Magnesium Hydrox/Alum Hydrox 30 Ml Oral.Susp) 30 ml PO Q6H PRN PRN Reason: Heartburn/Nausea Amlodipine Besylate (Amlodipine Besylate 5 Mg Tablet) 5 mg PO DAILY [facility] Last Admin: 07/24/24 08:20 Dose: 5 mg Empagliflozin (Empagliflozin 25 Mg Tablet) 25 mg PO DAILY [facility] Last Admin: 07/24/24 08:20 Dose: 25 mg Hydroxyzine HCl (Hydroxyzine Hcl 25 Mg Tablet) 25 mg PO Q6H PRN PRN Reason: mild anxiety Last Admin: 07/21/24 08:53 Dose: 25 mg Lidocaine (Lidocaine 4 % Patch Adh..Patch) 1 patch TRANSDERMA DAILY [facility]; Protocol Last Admin: 07/23/24 08:31 Dose: Not Given Magnesium Hydroxide (Milk Of Magnesia 30 Ml Oral.Susp) 30 ml PO DAILY PRN PRN Reason: Constipation Nicotine Polacrilex (Nicotine Polacrilex 2 Mg Gum) 4 mg BUCCAL Q2H PRN PRN Reason: Nicotine Cravings Omeprazole (Omeprazole 20 Mg Capsule.Dr) 20 mg PO DAILY@0630 [facility] Last Admin: 07/24/24 06:11 Dose: 20 mg Sertraline HCl (Sertraline Hcl 100 Mg Tablet) 100 mg PO DAILY [facility] Last Admin: 07/24/24 08:21 Dose: 100 mg Trazodone HCl (Trazodone Hcl 50 Mg Tablet) 50 mg PO BEDTIME MRX1 PRN PRN Reason: Insomnia Last Admin: 07/23/24 21:21 Dose: 50 mg Vitamin D (Cholecalciferol (Vitamin D3) 25 Mcg Tablet) 50 mcg PO DAILY [facility] Last Admin: 07/24/24 08:20 Dose: 50 mcg Allergies Allergies Allergy/AdvReac Type Severity Reaction Status Date / Time No Known Allergies Allergy Verified 07/17/24 17:56 Assessment & Plan Assessment & Plan (1) MDD (major depressive disorder): Status: Acute Code(s): F32.9 - Major depressive disorder, single episode, unspecified (2) REBECCA (generalized anxiety disorder): Status: Acute Code(s): F41.1 - Generalized anxiety disorder Plan 49-year-old, [place] male he is a transfer from an ED from [place], [place] to [facility] yesterday for suicide ideation, anxiety and depression, in the setting of increased life stressors. Patient notes that he has been experiencing poor concentration, lack of interest/pleasure in his work and personal activities, poor sleep, hopelessness, helplessness, and anxiousness for the past 6 months. 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 He is with 3 children. He also supports his mother and other family members in [place]. His symptoms progressively worsened last week. Yesterday, he felt tired and was confused; he wanted to rest, therefore, he took 8 pain tablets (unknown name) in order to rest; he thought that he will be relieved if he were not alive. After he took the tablets, his advised him to go to the emergency room and seek help. He reports severe anxiety and depression. He reports history of feeling very depressed during the COVID pandemic for about a year and a half. He denies history of taking psychotropic medications. He denies nir or hypomania. He denies current SI. He denies HI/AH/VH. He denies alcohol illicit drug use. Formulation/Clinical reasoning: MDD and REBECCA: Likely due to increased stressors such as work and financial demands and being the sole provider for his family. His symptoms progressively worsened over the past 6 months. He took some pain medication yesterday to go to sleep and never wake up, and thought that would relieve his symptoms. He denies current SI at this time. No nir or hypomania. No HI/AH/VH. No history of psychotropic medications. Will start sertraline 50 mg daily; advised to take as prescribed. Instructed on the risks, benefits, and potential adverse reactions of the medication. Continue current treatment regimen. Plan Admit to M5. CV 15 minutes check. Diagnostics as needed. Collateral contact. Start sertraline 50 mg daily. Continue remainder of regime. Encouraged full milieu. Discharge planning. 07/19: Continue tx 07/20/2024 Continue plan of care patient feeling better on current regimen no complaints of side effects 07/24: Decrease Sertraline to 75 mg daily Discharge 07/25 Reason for continued inpatient stay Substantial Risk for: stable for discharge Time Spent With Patient Time: Total time managing care of this patient today ____ minutes.
[2024-07-24 19:52] VITALS: BP 129/87; PULSE 73; TEMP 37.1; O2SAT 97
[2024-07-24] MEDS: traZODone HCL 50 MG TABLET PO (21:41)
[2024-07-25] MEDS: Omeprazole 20 MG CAPSULE.DR PO (06:27)
[2024-07-25 08:18] VITALS: BP 127/72; PULSE 62; RESP 16; TEMP 36.4; O2SAT 97
[2024-07-25] MEDS: Cholecalciferol (Vitamin D3) 25 MCG TABLET 50 MCG PO (09:03)
[2024-07-25] MEDS: amLODIPine Besylate 5 MG TABLET PO (09:03)
[2024-07-25] MEDS: Sertraline HCL 25 MG TABLET 75 MG PO (09:03)
[2024-07-25] MEDS: Empagliflozin 25 MG TABLET PO (09:04)
--- NOTE | 2024-07-25 09:30 | PM.PSYDC ---
DS: Providers Provider Date of admission: 07/17/24 17:12 Primary care physician: Unknown Physician Consults: 07/17/24 18:01 Consult to Hospitalist Routine Comment: Consulting Provider: [facility] Reason For Exam: Transfer pt DS: Diagnosis Discharge Diagnosis (1) MDD (major depressive disorder): Status: Acute (2) REBECCA (generalized anxiety disorder): Status: Acute DS: Medications Discharge Medications Home Medications: Home Medications ?Medication ?Instructions ?Recorded ?Confirmed Jardiance 25 mg PO DAILY 07/18/24 07/18/24 Vitamin D3 50 mcg PO DAILY 07/18/24 07/18/24 amlodipine 5 mg PO DAILY 07/18/24 07/18/24 omeprazole 20 mg capsule,delayed 20 mg PO DAILY 07/18/24 07/18/24 release Previous Rx's ?Medication ?Instructions ?Recorded sertraline 25 mg tablet 75 mg (3 x 25 mg) PO DAILY #90 tabs 07/25/24 trazodone 50 mg tablet 50 mg PO BEDTIME MRX1 PRN Insomnia 07/25/24 #60 tabs DS: Summary Time Spent with Patient Time attestation: Total time managing care of this patient today ____ minutes. Discharge Plan Discharge Anticipated Discharge Date/Time: 07/25/24 12:00 Patient Disposition: Home, Self-Care Discharge Diagnosis: Recurrent Major Depression Generalized Anxiety Disorder DM,Type II Referrals: [facility] ryan Singleton [Other] - 07/30/24 2:00 pm (This is an appointment and evaluation for psychiatry and therapy with the behavioral health team. You will meet with Areli Pressley first and then follow up with your PCP appointment. ) [facility] PCP ryan Lloyd [Other] - 07/30/24 2:40 pm Physician,Unknown J [Primary Care Provider] - 1 Week Discharge Medications: New trazodone 50 mg Tablet 50 mg PO BEDTIME MRX1 PRN (Reason: Insomnia) Qty: 60 0RF sertraline 25 mg Tablet 75 mg PO DAILY Qty: 90 0RF Continued omeprazole 20 mg Capsule,Delayed Release(Dr/Ec) 20 mg PO DAILY Jardiance 25 mg tablet 25 mg PO DAILY Vitamin D3 50 mcg tablet 50 mcg PO DAILY amlodipine 5 mg tablet 5 mg PO DAILY Discharge Orders: Discharge Order (Routine); Ordered 07/25/24 Ordered By: Ree Mosquera Diet: Advance to usual diet Activity on Discharge: As tolerated Stand Alone Forms: Patient Portal Discharge page Print Language: Yi Care Plan Goals: Mood and Behavioral Stabilization Health Concerns: Mood and Behavioral Stabilization Plan of Treatment: Attend scheduled appointments Take medications as directed Assessment: Pt denies SI,HI,AH,VH There are no signs of acute psychosis or nir Pt is planning to continue treatment on an out patient basis Family is supportive of pt and his plan of care
== END 2024-07-25 11:25 | disposition home or self-care (01) | DRG 751 ==
PROVIDERS: Admitting Provider Psychiatry & Neurology Psychiatry; Visit Provider Clinical Nurse Specialist Psychiatric/Mental Health, Adult
DX: F33.9 Major depressive disorder, recurrent, unspecified (principal); E11.9 Type 2 diabetes mellitus without complications; K76.0 Fatty (change of) liver, not elsewhere classified; R45.851 Suicidal ideations; K21.9 Gastro-esophageal reflux disease without esophagitis; I10 Essential (primary) hypertension; F41.1 Generalized anxiety disorder; Z87.891 Personal history of nicotine dependence; Z79.899 Other long term (current) drug therapy
CPT/HCPCS: 36415; 80061; 82607; 82746; 83036; 83735; 84439; 84443

== ENCOUNTER → 2024-07-17 17:12 | Outpatient (BNV) | payer SELFPAY | PROVIDERS: Admitting Provider Psychiatry & Neurology Psychiatry; Visit Provider Nurse Practitioner Family | DX: F32.9 Major depressive disorder, single episode, unspecified (principal); F41.1 Generalized anxiety disorder | CPT/HCPCS: 90792; 99231 ==

== ENCOUNTER → 2024-07-17 17:12 | Outpatient (BNV) | payer SELFPAY | PROVIDERS: Admitting Provider Psychiatry & Neurology Psychiatry; Visit Provider Psychiatry & Neurology Psychiatry | DX: F32.2 Major depressive disorder, single episode, severe without psychotic features (principal); F41.1 Generalized anxiety disorder | CPT/HCPCS: 99231 ==

== ENCOUNTER → 2024-07-17 17:12 | Outpatient (BNV) | payer SELFPAY | PROVIDERS: Admitting Provider Psychiatry & Neurology Psychiatry; Visit Provider Nurse Practitioner Family | DX: E11.9 Type 2 diabetes mellitus without complications (principal) | CPT/HCPCS: 99221 ==